=== PATIENT | female | born 1985 | race Caucasian/White ===

== ENCOUNTER → 2016-10-16 | Outpatient (CLI) | payer BC ==
[~2016-10-16] MED LIST: MTR600X PO; OXYC-57 PO; PRENTAB26 PO; VALA500T60 PO; [UNRECOGNIZED DRUG - CODE] PEG; [UNRECOGNIZED DRUG - OTHER] PO; juice plus PO
[2016-10-16 17:40] LABS: BASO % 0.1 %; BASO ABS # 0.01 K/uL (0-0.2); COMPLETE YES; EOS % 0.5 %; HEMATOCRIT 37.7 % (37-47); IG% 0.2 %; LYMPH ABS # 1.97 K/uL (1.2-3.4); MEAN CELL VOLUME 90.8 fL (80-100); MEAN CORPUSCULAR HEMOGLOBIN 31.8 pg (25-34); MEAN PLATELET VOLUME 10.1 fL (7.4-10.4); MONO % 9.2 %; PLATELET COUNT 166 K/uL (130-400); RED BLOOD COUNT 4.15 M/uL (4.2-5.4); WHITE BLOOD COUNT 8.22 K/uL (4.8-10.8)
[2016-10-20 12:35] LABS: CHLAMYDIA TRACH RNA*** NOT DETECTED (NOT DETECTED); GC (NEIS GONORRHOEAE)RNA** NOT DETECTED (NOT DETECTED)
== END | disposition home or self-care (01) ==
LOC: C.LAB1850 16:56
PROVIDERS: ATTEND Obstetrics & Gynecology
DX: O09.299 Supervision of pregnancy with other poor reproductive or obstetric history, unspecified trimester (principal)

== ENCOUNTER → 2017-03-03 | Outpatient (CLI) | payer BC ==
[2017-03-03 17:24] LABS: HEMATOCRIT 37.5 % (37-47)
[2017-03-03 17:29] LABS: URINE APPEARANCE CLEAR (CLEAR); URINE BILIRUBIN NEG (NEG); URINE COLOR YELLOW; URINE NITRITE NEG (NEG); URINE SPECIFIC GRAVITY 1.007 (1.000-1.030); UROBILINOGEN NEG (NEG)
[2017-03-03 17:31] LABS: MANUAL MICROSCOPIC REQUIRED? NO; REVIEW REQ? NO
== END | disposition home or self-care (01) ==
LOC: C.LAB1850 16:19
PROVIDERS: ATTEND Obstetrics & Gynecology
DX: O24.419 Gestational diabetes mellitus in pregnancy, unspecified control (principal); Z3A.00 Weeks of gestation of pregnancy not specified

== ENCOUNTER → 2017-04-28 | Outpatient (CLI) | payer BC | END | disposition home or self-care (01) | LOC: C.LABSPEC 14:28 | PROVIDERS: ATTEND Obstetrics & Gynecology | DX: Z34.82 Encounter for supervision of other normal pregnancy, second trimester (principal) ==

== ENCOUNTER 2017-05-29 03:17 | Inpatient (IN) | payer BC ==
--- NOTE | 2017-05-28 11:14 | PAT Medication Instructions ---
Service Date May 28, 2017. Current Home Medication List Multivit/Min/Iron/Fol Ac/Pren ( Vitamin), 1 TAB PO NOON [place]-3 Fatty Acids (Epa), 1 TAB PEG NOON Valacyclovir (Valtrex), 500 MG PO QPM [juice plus], 2 TAB PO BID Medication Instructions For Your Scheduled Surgery - Hold the following medications the morning of surgery: Multivit/Min/Iron/Fol Ac/Pren ( Vitamin), 1 TAB PO NOON [place]-3 Fatty Acids (Epa), 1 TAB PEG NOON [juice plus], 2 TAB PO BID - Take the following medications as scheduled the night before surgery: Valacyclovir (Valtrex), 500 MG PO QPM [juice plus], 2 TAB PO BID If you have any questions please call us at [phone] or [phone] or [phone]
[2017-05-28 11:36] LABS: BASO % 0.3 %; BASO ABS # 0.02 K/uL (0-0.2); COMPLETE YES; EOS % 0.4 %; IG% 0.3 %; LYMPH % 17.9 %; LYMPH ABS # 1.34 K/uL (1.2-3.4); MEAN CORPUSCULAR HEMOGLOBIN 34.3 pg (25-34); MEAN CORPUSCULAR HGB CONC 35.8 g/dl (32-36); MEAN PLATELET VOLUME 9.5 fL (7.4-10.4); MONO % 6.4 %; NEUT % 74.7 %; PLATELET COUNT 130 K/uL (130-400); RED BLOOD COUNT 3.96 M/uL (4.2-5.4)
[2017-05-28 13:21] LABS: BLOOD UREA NITROGEN 9 mg/dl (7-18); CALCIUM 9.2 mg/dl (8.5-10.1); CARBON DIOXIDE 26 mmol/L (21-32); CHLORIDE 104 mmol/L (98-107); CREATININE 0.62 mg/dl (0.60-1.20); GLUCOSE 72 mg/dl (70-99); POTASSIUM 4.2 mmol/L (3.5-5.1); SODIUM 136 mmol/L (136-145)
[~2017-05-29] VITALS: Ht 162.6 cm; Wt 80.5 kg
[2017-05-29] VITALS (16 sets, daily range): BP systolic 103–124; BP diastolic 67–74; PULSE 76–89; TEMP 36.5–36.9; O2SAT 96–100; Ht 162.6 cm; Wt 80.5 kg
[~2017-05-29 03:17] MED LIST changes: -MTR600X PO; -OXYC-57 PO; -[UNRECOGNIZED DRUG - OTHER] PO
[2017-05-29] MEDS ORDERED: CITRIC ACID/SODIUM CITRATE 15 ML UDC PO ONE (05:45)
[2017-05-29] MEDS ORDERED: CEFAZOLIN IV 2,000 MG in DEXTROSE 5% 50ML 50 ML IV SCH (06:00)
[2017-05-29 06:07] LABS: BASO % 0.2 %; BASO ABS # 0.02 K/uL (0-0.2); COMPLETE YES; EOS % 0.9 %; HEMATOCRIT 37.6 % (37-47); IG% 0.3 %; LYMPH % 18.7 %; LYMPH ABS # 1.72 K/uL (1.2-3.4); MEAN CELL VOLUME 96.2 fL (80-100); MEAN CORPUSCULAR HEMOGLOBIN 33.5 pg (25-34); MEAN CORPUSCULAR HGB CONC 34.8 g/dl (32-36); MEAN PLATELET VOLUME 9.5 fL (7.4-10.4); MONO % 7.2 %; NEUT % 72.7 %; PLATELET COUNT 131 K/uL (130-400); RED BLOOD COUNT 3.91 M/uL (4.2-5.4); WHITE BLOOD COUNT 9.21 K/uL (4.8-10.8)
--- NOTE | 2017-05-29 06:45 | History and Physical ---
History & Physical Date May 29, 2017. Chief Complaint Prior section, for repeat History of Present Illness The patient is a 31 year old female with SIUP at Term, and prior , here for repeat. Additional History Hepatic Disease: No Endocrine Disorder: No Kidney Disease: No Hypertension: No Heart Disease: No Bleeding Tendencies: No Infectious Diseases: No Allergies Coded Allergies: No Known Allergies (Unverified , 05/28/17) Home Medications Scheduled Multivit/Min/Iron/Fol Ac/Pren ( Vitamin), 1 TAB PO NOON [place]-3 Fatty Acids (Epa), 1 TAB PEG NOON Valacyclovir (Valtrex), 500 MG PO QPM [juice plus], 2 TAB PO BID Physical Examination Skin: warm/dry, no rash Eyes: normal inspection ENT: normal ENT inspection Head: normocephalic Neck: supple Respiratory/Chest: lungs clear, normal breath sounds Cardiovascular: regular rate, rhythm Abdomen / GI: normal bowel sounds Back: normal inspection Extremities: normal inspection Genitourinary - Female: normal pelvic exam (gravid, cervix with membranes stripped yesterday) Neurologic/Psych: no motor/sensory deficits Diagnosis SIUP @ Term, for repeat Plan of Treatment Proceed with this AM
[2017-05-29] MEDS: LACTATED RINGER'S 1000ML 1,000 ML IV SCH ×2 (07:02→08:04)
[2017-05-29] MEDS ORDERED: OXYTOCIN INJ 10 UNITS/ML VIAL ONE ×2 (07:16→08:19)
[2017-05-29] MEDS ORDERED: FENTANYL CITRATE INJ 50 MCG/1 ML 2 ML VIAL ONE (07:16)
[2017-05-29] MEDS ORDERED: MoRPHine SULFATE PF 1 MG/ML 10 ML AMP/VIAL ONE (07:18)
[2017-05-29] MEDS ORDERED: PHENYLEPHRINE HCL INJ 10 MG/ML VIAL ONE (07:20)
[2017-05-29] MEDS ORDERED: DIPHTHERIA/TETANUS/PERTUSSIS 0.5 ML SYR/VIAL IM. ONE (08:45)
[2017-05-29] MEDS ORDERED: BENZOCAINE 20% AER SPR 82.5 GM CAN EXT PRN (08:45)
[2017-05-29] MEDS ORDERED: HYDROCORTISONE ACETATE 25 MG SUPP PR PRN (08:45)
[2017-05-29] MEDS ORDERED: LANOLIN OINT EXT PRN ×2 (08:45)
[2017-05-29] MEDS ORDERED: SUPERCREAM 0.870 % 15GM JAR EXT PRN (08:45)
[2017-05-29] MEDS ORDERED: NALOXONE HCL INJ 1 MG in SODIUM CHLORIDE 0.9% 1000ML 1,000 ML IV PRN ×4 (08:54)
[2017-05-29] MEDS ORDERED: LACTATED RINGER'S 1000ML 500 ML IV PRN (08:54)
[2017-05-29] MEDS ORDERED: NALOXONE HCL INJ 0.08 MG in SYRINGE 1.8 ML IV PRN (08:54)
[2017-05-29] MEDS ORDERED: SODIUM CHLORIDE 0.9% 1000ML 1,000 ML IV PRN (08:54)
[2017-05-29] MEDS ORDERED: NO NARCOTICS OR SEDATIVES SCH (09:00)
[2017-05-29] MEDS ORDERED: NALOXONE HCL 0.4 MG/1 ML VIAL/CARP IV PRN (09:00)
[2017-05-29] MEDS ORDERED: DC INTRASPINAL MORPHINE SCH (09:00)
[2017-05-29] MEDS ORDERED: EpHEDrine SULFATE INJ 50 MG/ML AMP IV PRN (09:00)
[2017-05-29] MEDS ORDERED: NALBUPHINE HCL INJ 10 MG/ML AMP IV PRN (09:00)
[2017-05-29] MEDS ORDERED: ONDANSETRON INJ 2 MG/ML 2 ML VIAL IV PRN (09:00)
[2017-05-29] MEDS ORDERED: DiphenhydrAMINE HCL 50 MG/ML VIAL IV PRN (09:00)
[2017-05-29] MEDS ORDERED: PROMETHAZINE HCL INJ 25 MG in SODIUM CHLORIDE 0.9% 50ML 50 ML IV PRN (09:00)
[2017-05-29] MEDS ORDERED: MoRPHine SULFATE PF 1 MG/ML 10 ML AMP/VIAL EPI PRN (09:00)
[2017-05-29] MEDS ORDERED: OXYTOCIN INJ 30 UNITS in LACTATED RINGER'S 1000ML 1,000 ML IV SCH (09:30)
[2017-05-29] MEDS ORDERED: LACTATED RINGER'S 1000ML 1,000 ML IV SCH (09:30)
--- NOTE | 2017-05-29 10:42 | OPERATIVE REPORT ---
DATE OF OPERATION: 05/29/2017 PREOPERATIVE DIAGNOSES: 1. Corado intrauterine at term. 2. Prior section. POSTOPERATIVE DIAGNOSIS: Same. PROCEDURE: Repeat low transverse section with 2-layer uterine closure. SURGEON: Dr. Ford. MILK TREATER: PGY1. ESTIMATED BLOOD LOSS: 600. COMPLICATIONS: None. DISPOSITION: Stable in labor and delivery. DESCRIPTION: Daysi Kan is a 31-year-old G2, P1, prior section for breech. She presented at 40 weeks and 5 days with a corado intrauterine in the vertex position. A discussion was held with the patient in preop as she had been 1 cm dilated yesterday, had her membranes stripped and presented at 2 cm dilated this morning with some cramping that was irregular and not particularly painful. We discussed the fact that she had made surgical change and that I would be willing to augment her very early labor with artificial rupture of membranes if she continued to strongly desire a attempt. She and her discussed this at length and they decided ultimately although she was very enthusiastic about a the previous day at this point she had mentally prepared herself for a and would prefer to proceed with that route. Therefore, she was taken to the operating room and placed on the operating table in the supine position with a leftward tilt and prepped and draped in standard sterile fashion and a hard time-out was taken prior to proceeding. A Pfannenstiel incision was created by excising the prior keloid scar. This was then carried down sharply to the fascia which was incised and extended using Isaac scissors. The fascia was sharply and bluntly dissected off the underlying rectus. The rectus were naturally in the midline and this was bluntly extended and entry to the peritoneum was made in a blunt manner and extended using pressure from the excavator operator's hands. The bladder blade was placed. Bladder flap was created and a lower uterine segment transverse incision was created with entry to the uterus being made in a blunt manner for clear amniotic fluid. The hysterotomy was then extended. The head of the infant was elevated gently to the hysterotomy and then delivered using mild fundal pressure. A loose nuchal cord x1 was reduced at the time of delivery. The infant was very vigorous, made respiratory attempts and crying while still on the field. The cord was doubly clamped and cut and the infant was taken to the warmer for pediatric attention. The placenta delivered manually and was intact with a 3-vessel cord. The uterus was exteriorized, cleared of all clot and debris. Hysterotomy was then closed in 2 layers using 0 Vicryl suture with a running locked first layer and a running nonlocked imbricating second layer. The uterus was then anteflexed. The ovaries and tubes were seen to be normal bilaterally. The posterior gutter was cleared of clot and debris and the uterus was then gently reinternalized. The lateral gutters were cleared of clot and debris using a damp lap sponge. Final exam of the hysterotomy revealed that it was intact and hemostatic. The rectus was then allowed to reapproximate naturally and the fascia was closed using 1-0 Vicryl in a running nonlocked manner at the completion of which the fascia was examined and found to be free of defect. Subcutaneous tissue was copiously irrigated and then gently reapproximated using a 3-0 chromic after which the skin was closed using 4-0 Monocryl with Dermabond dressing being applied. The Quintana was draining clear yellow urine at the time the patient was considered to have completed her surgery. She was then transferred in stable condition to recovery room. I attest to the content of the Intraoperative Record and any orders documented therein. Any exception s are noted below.
--- NOTE | 2017-05-29 11:15 | Anesthesiology Progress Note ---
Anesthesia Post Op Note Date & Time May 29, 2017 at 11:14 Notes Mental Status: alert / awake / arousable, participated in evaluation Pt Amnestic to Procedure: No Nausea / Vomiting: adequately controlled Pain: adequately controlled Airway Patency, RR, SpO2: stable & adequate BP & HR: stable & adequate Hydration State: stable & adequate Neuraxial Anesthesia: was administered, sensory block is resolving Anesthetic Complications: no major complications apparent
[2017-05-29] MEDS: SIMETHICONE 80 MG CHEW PO SCH ×3 (12:00→19:34)
[2017-05-29] MEDS: KETOROLAC TROMETHAMINE 30 MG/ML VIAL IV. PRN ×2 (12:23→18:55)
--- NOTE | 2017-05-29 17:02 | Discharge Instructions ---
Discharge Instructions Date of Service May 29, 2017. Admission Reason for Admission: Previous Section Discharge Discharge Diagnosis / Problem: after delivery Discharge Goals Goal(s): Routine recovery after delivery Medications Continue Dispensed Medications: supercream, dermaplast, tucks, lansinoh Activity Recommendations Activity Limitations: per Instructions/Follow-up section . Instructions / Follow-Up Instructions / Follow-Up ACTIVITY RECOMMENDATIONS: * Gradual return to full activity over the next 2-3 weeks. * No lifting - nothing heavier than baby over the next 2-3 weeks. * Do not engage in vigorous exercise, sexual activity or sports until cleared by your physician. * Do not drive or operate any motorized equipment until cleared by your physician. * You may shower/bathe daily. MEDICATIONS: For discomfort or pain, you may use Acetaminophen (Tylenol), Ibuprofen (Advil), or Naproxen (Aleve) following the package directions. For constipation you may use Colace following the package directions. BREAST CARE: If you are not breast feeding: * Wear a supportive bra 24 hours a day for one to two weeks. * Avoid stimulating your breasts and nipples as much as possible during the first few weeks after delivery. * When taking a shower, have the warm water hit your back, not breasts. * When your breasts feel full, apply ice packs. Usually three to four times a day helps ease the discomfort. * Take a mild pain medication (Tylenol / Motrin) when you are uncomfortable. If breast feeding: * Use breast milk to lubricate nipples. Lansinoh cream may be used for sore nipples. You do not need to remove cream prior to breast feeding. If using a different brand of cream, check the label for directions regarding removal of cream prior to nursing. * Wear a supportive bra. * If having problems with breasts or breast feeding, call a business objects consultant or your health care provider. SPECIAL CARE INSTRUCTIONS: When you are discharged from the hospital, it is important for you to follow the instructions listed below: * During the first week at home, you should be able to care for yourself and your baby. In addition, the usual light household activities are encouraged. * Limit your activities to the way you feel. Do not try to clean the house or move furniture. Be sensible. * If you actively engage in sports and have done so up until the time of your delivery, you may resume these activities as soon as you feel able. This may take up to one month or even longer. Use good judgment. * Continue to take your vitamins for at least six weeks after the of your baby. * Your diet need not be limited unless you were on a special diet before your delivery. Breast-feeding mothers need around 2500 calories per day and at least 64-80 ounces of fluid per day (8 to 10 glasses). * You should eat foods from the four major food groups. Crash diets or fad diets are to be avoided. Eating lean meats, fresh fruits and vegetables, low-fat dairy products, high fiber foods and a regular exercise program, will help you get back to your pre- weight without putting your health at risk. * Constipation is sometimes a problem after delivery. Take a mild laxative as needed. If breast feeding, Milk of Magnesia is acceptable to use. You may use a suppository or Fleets enema. * A daily shower or tub bath is suggested. Wash incision daily with warm soapy water and pat dry. It doesn't need to be covered unless drainage is present. * A bloody vaginal discharge will usually continue until around four weeks . A small amount of bleeding may continue for as long as six weeks. Vaginal discharge changes from the bright red bleeding after delivery to pink then brownish and finally yellowish-pink before becoming white and disappearing. * Bleeding may increase with activity. Your first period may come in 4-8 weeks. If you are breast feeding, your period may be delayed even longer. * [place] (sex) can begin whenever both you and your partner feel comfortable and do not have any form of genital infection. It is recommended that you wait at least six weeks for internal and external healing to occur. If you have questions, please talk to your health care practitioner. A condom should be used to prevent infection and . * Foreplay, gentle intercourse and lubrication is very important the first several times to prevent pain. A water-based lubricant such as K-Y jelly or Astroglide may be used. * If you have RH negative blood and your baby is RH positive, you will receive RHOGAM by injection prior to discharge. The nurse will give you a card to keep with you that has the date and place that you received RHOGAM after delivery. * During your care, you had a Rubella screen done to check for the presence of rubella antibodies in your blood. If your test was negative, you will receive a Rubella vaccine prior to discharge. This vaccine may cause a fever, soreness at the injection site and flu-like symptoms. If these symptoms persist, notify your health care practitioner. is not advised for one month after a Rubella vaccine. * Verbalizes understanding of car seat law as reviewed with patient nursing. * Car Seat hand-out given and reviewed with patient by nursing. * Shaken baby information reviewed with patient by nursing. Call you doctor if: * Heavy bleeding (saturating several pads an hour) or passing clots the size of your fist. * A fever >101 degrees F (38.3 degrees C) on two occasions four hours apart and /or chills. * Unusual pain in the pelvic or vaginal areas. * Call the doctor for any increased redness, drainage or swelling around the incision and any pain unrelieved by prescribed pain medication. * "Baby Blues" lasting longer than two weeks. If you have any questions or concerns, call your health care practitioner at . FOLLOW UP VISIT: * Please call the office at to schedule a 6 week examination. It is important you keep this appointment. It is important for you to make arrangements for either yearly or twice yearly check-ups thereafter. Current Hospital Diet Patient's current hospital diet: Clear Liquid Diet Discharge Diet Recommended Diet: Regular Diet Procedures Procedures Performed: Repeat Caesarean Section;Delivery of a live male child at 0817 Pending Studies Studies pending at discharge: no Medical Emergencies . Who to Call and When: Medical Emergencies: If at any time you feel your situation is an emergency, please call [phone] immediately. . Non-Emergent Contact Non-Emergency issues call your: Optical Designer . . "Provider Documentation" section prepared by Juan Rausch. . VTE Core Measure Inpt VTE Proph given/why not?: SCD's
[2017-05-29] MEDS: DOCUSATE SODIUM 100 MG CAP PO SCH (19:34)
[2017-05-30] VITALS (8 sets, daily range): BP systolic 102–113; BP diastolic 66–75; PULSE 76–99; TEMP 36.4–36.8; O2SAT 96–100
[2017-05-30] MEDS: KETOROLAC TROMETHAMINE 30 MG/ML VIAL IV. PRN (02:06)
[2017-05-30] MEDS ORDERED: ONDANSETRON INJ 2 MG/ML 2 ML VIAL IV PRN (03:00)
[2017-05-30] MEDS ORDERED: ZOLPIDEM TARTRATE 5 MG TAB PO PRN (03:00)
[2017-05-30] MEDS ORDERED: OXYCODONE/ACETAMINOPHEN 5-325 TAB PO PRN (03:00)
[2017-05-30] MEDS ORDERED: KETOROLAC TROMETHAMINE 30 MG/ML VIAL IV. PRN (03:00)
[2017-05-30] MEDS ORDERED: PROMETHAZINE HCL INJ 25 MG in SODIUM CHLORIDE 0.9% 50ML 50 ML IV PRN (03:00)
[2017-05-30] MEDS ORDERED: DiphenhydrAMINE HCL 50 MG/ML VIAL IV PRN (03:00)
--- NOTE | 2017-05-30 06:01 | OB/GYN Progress Note ---
J[employer]ER Progress Note Date of Service May 30, 2017. Subjective conversation w/ patient, physical exam, chart review, lab review Ambulation: limited ambulation Voiding: no voiding problems Passing Gas: No Diet Tolerance: Clear Liquids Lochia: Small Feeding Type: Breast Feeding Pain: mild pain Review of Systems Constitutional: No fever Respiratory: No shortness of breath Cardiac: No chest pain Abdomen: No nausea, No vomiting Female : No dysuria Objective Vital Signs Date Time Temp Pulse Resp B/P (MAP) Pulse Ox O2 Delivery O2 Flow Rate FiO2 05/30/17 03:30 36.8 79 16 104/68 (80) 96 Room Air 05/30/17 03:00 18 96 05/30/17 02:15 16 99 05/30/17 01:15 18 98 05/30/17 00:15 18 100 05/29/17 23:40 100 Room Air 05/29/17 23:40 36.7 82 18 106/72 (83) 100 Room Air 05/29/17 23:15 18 97 05/29/17 22:15 18 100 05/29/17 21:15 18 97 05/29/17 20:15 18 99 05/29/17 19:35 36.8 80 18 104/68 (80) 96 Room Air 05/29/17 19:15 18 98 05/29/17 18:28 18 97 05/29/17 17:30 18 100 05/29/17 16:23 18 100 05/29/17 15:25 Room Air 05/29/17 15:25 18 99 05/29/17 15:25 36.7 76 18 103/67 (79) 99 Room Air 05/29/17 14:29 18 97 05/29/17 13:30 36.8 81 18 107/70 (82) 100 Room Air 05/29/17 13:30 18 100 05/29/17 12:30 36.5 89 20 109/70 (83) 99 Room Air 05/29/17 12:30 20 99 05/29/17 12:13 36.8 89 18 124/74 (91) 99 Room Air 05/29/17 11:30 Nasal Cannula 05/29/17 11:30 96 Room Air 05/29/17 11:30 36.9 80 18 107/69 (82) 96 Room Air 05/29/17 11:30 18 96 Physical Exam General Appearance: WELL-APPEARING Respiratory/Chest: lungs clear, normal breath sounds, no respiratory distress Cardiovascular: regular rate, rhythm Abdomen: normal bowel sounds, non tender, soft Fundus: Firm, Relation to Umbilicus (at U) Incision Description: Clean, Dry & Intact Extremities: non-tender, no pedal edema Laboratory Results Last 24 Hours Test 05/29/17 06:05 Bedside Glucose 85 mg/dl Medications Current Inpatient Medications Medications (Trade) Dose Ordered Sig/Nohemi Route Start Time Stop Time Status Last Admin Dose Admin Lactated Ringer's 1,000 ml @ 1,000 mls/hr Q1H IV 05/29/17 05:43 06/28/17 05:42 05/29/17 08:04 1,000 MLS/HR Lactated Ringer's 1,000 ml @ 125 mls/hr Q8H IV 05/29/17 09:30 06/28/17 09:29 05/29/17 18:22 125 MLS/HR Ketorolac Tromethamine (Toradol Inj) 30 mg Q6H PRN IV. 05/30/17 03:00 06/04/17 02:59 Oxycodone/ Acetaminophen (Percocet 5-325mg Tab) 1 tab Q4H PRN PO 05/30/17 03:00 06/13/17 02:59 Oxycodone/ Acetaminophen (Percocet 5-325mg Tab) 2 tab Q4H PRN PO 05/30/17 03:00 06/13/17 02:59 Ibuprofen (Motrin Tab) 600 mg Q4H PRN PO 05/29/17 08:45 06/28/17 08:44 Promethazine HCl 25 mg/Sodium Chloride 51 ml @ 204 mls/hr Q4H PRN IV 05/30/17 03:00 06/29/17 02:59 Ondansetron HCl (Zofran Inj) 4 mg Q4H PRN IV 05/30/17 03:00 06/29/17 02:59 Prenat Multivit/ [place]/Iron/Folic Ac ( Vitamin Tab) 1 tab DAILY PO 05/30/17 08:00 06/29/17 07:59 Bisacodyl (Dulcolax Tab) 5 mg HS ONCE PO 05/30/17 22:00 05/30/17 22:01 Bisacodyl (Dulcolax Supp) 10 mg PRN PRN [place] 05/31/17 08:45 06/30/17 08:44 Docusate Sodium (coLACE CAP) 100 mg BID PO 05/29/17 20:00 06/28/17 19:59 05/29/17 19:34 100 MG Ferrous Sulfate (Feosol Tab) 325 mg DAILY PO 05/30/17 08:00 06/29/17 07:59 Cocaine HCl (Supercream 0.870% Cr) BID PRN EXT 05/29/17 08:45 06/12/17 08:44 Lanolin (Lanolin Oint) PRN PRN EXT 05/29/17 08:45 06/28/17 08:44 Hydrocortisone Acetate (Anusol Hc Supp) 25 mg BID PRN [place] 05/29/17 08:45 06/28/17 08:44 Benzocaine (Dermoplast Aero Spr) 1 appln PRN PRN EXT 05/29/17 08:45 06/28/17 08:44 Zolpidem Tartrate (Ambien Tab) 5 mg HSZ PRN PO 05/30/17 03:00 06/29/17 02:59 Simethicone (Mylicon Chew Tab) 80 mg QID PO 05/29/17 12:00 06/28/17 12:59 05/29/17 19:34 80 MG Diphenhydramine HCl (Benadryl Cap) 25 mg QID PRN PO 05/30/17 03:00 06/29/17 02:59 Diphenhydramine HCl (Benadryl Inj) 25 mg QID PRN IV 05/30/17 03:00 06/29/17 02:59 Assessment and Plan Post-Op Day Number: 1 Continue Routine Care: A/P: This is a 31 y/o female, , POD#1 s/p repeat . She is clinically stable. Plan: - Vitals signs are reviewed and WNL (Tmax 36.8 ) - Last Hgb is 13.1 (05/29) - Blood type B-, GBS neg, Rubella Immune - Routine post operative care - Encourage ambulation, monitor and control pain with medication as needed, continue with regular diet as tolerated and monitor lochia - Stool softeners and sitz bath recommended - Encourage breast feeding and educate about breast feeding Resident Physician Supervision Note: I was present with Dr. Rausch during the history and exam. I discussed the case with the resident and agree with the findings and plan as documented in the note. Any exceptions or clarifications are listed here: Doing well. Feels her skin of legs are tight but no calf tenderness. No flatus yet but feels like its on the verge. No n/v. She did void since renee out now of good volume. Uterus for me was 2 down, firm, nt, incision c/d/i. routine care. adv diet, ambulate, po pain meds. Documented By: Julia Cross Resident Involvement: Resident Care Provided Care Provided: OB Delivery
[2017-05-30 07:00] LABS: BASO % 0.1 %; BASO ABS # 0.01 K/uL (0-0.2); COMPLETE YES; EOS % 0.5 %; IG% 0.3 %; LYMPH % 16.5 %; LYMPH ABS # 1.29 K/uL (1.2-3.4); MEAN CELL VOLUME 97.3 fL (80-100); MEAN CORPUSCULAR HEMOGLOBIN 32.4 pg (25-34); MEAN CORPUSCULAR HGB CONC 33.3 g/dl (32-36); MEAN PLATELET VOLUME 9.4 fL (7.4-10.4); MONO % 7.7 %; NEUT % 74.9 %; PLATELET COUNT 123 K/uL (130-400)
[2017-05-30] MEDS: PRENATAL VITAMIN TAB PO SCH (07:50)
[2017-05-30] MEDS: SIMETHICONE 80 MG CHEW PO SCH ×4 (08:23→19:41)
[2017-05-30] MEDS: FERROUS SULFATE 325 MG TAB PO SCH (08:24)
[2017-05-30] MEDS: DOCUSATE SODIUM 100 MG CAP PO SCH ×2 (08:24→19:41)
[2017-05-30] MEDS: OXYCODONE/ACETAMINOPHEN 5-325 TAB PO PRN ×5 (08:25→20:18)
[2017-05-30] MEDS: IBUPROFEN 600 MG TAB PO PRN ×4 (08:25→20:18)
[2017-05-30] MEDS ORDERED: BISACODYL 5 MG TABEC PO ONE (22:00)
[2017-05-31] MEDS: IBUPROFEN 600 MG TAB PO PRN ×6 (01:36→21:50)
[2017-05-31] MEDS: OXYCODONE/ACETAMINOPHEN 5-325 TAB PO PRN ×6 (01:37→21:51)
--- NOTE | 2017-05-31 06:51 | Progress Note ---
Subjective May 31, 2017. Subjective conversation w/ patient, physical exam Ambulation: ambulating normally Voiding: no voiding problems Passing Gas: Yes Diet Tolerance: Regular Diet Lochia: Moderate Feeding Type: Breast Feeding Review of Systems Constitutional: No fever, No chills Respiratory: No cough Abdomen: No nausea, No vomiting Objective Vital Signs Date Time Temp Pulse Resp B/P (MAP) Pulse Ox O2 Delivery O2 Flow Rate FiO2 05/30/17 23:55 36.4 76 16 102/66 (78) 98 Room Air 05/30/17 23:55 98 Room Air 05/30/17 16:51 36.7 87 20 113/75 (88) 05/30/17 08:30 Room Air 05/30/17 08:30 36.8 99 20 111/71 (84) Physical Exam General Appearance: WELL-APPEARING, NO APPARENT DISTRESS Respiratory/Chest: no respiratory distress, no accessory muscle use Cardiovascular: no edema Abdomen: non tender, soft Fundus: Firm Incision Description: Clean, Dry & Intact Extremities: no calf tenderness Laboratory Results Last 24 Hours Test 05/31/17 06:12 Hemoglobin 11.1 g/dL Hematocrit 32.0 % Assessment and Plan Post-Op Day#: 2
[2017-05-31 07:40] VITALS: BP 108/72; PULSE 76; TEMP 36.3
[2017-05-31] MEDS: PRENATAL VITAMIN TAB PO SCH (07:55)
[2017-05-31] MEDS: SIMETHICONE 80 MG CHEW PO SCH ×4 (07:55→19:26)
[2017-05-31] MEDS: DOCUSATE SODIUM 100 MG CAP PO SCH ×2 (07:55→19:26)
[2017-05-31] MEDS: FERROUS SULFATE 325 MG TAB PO SCH (07:55)
[2017-05-31] MEDS ORDERED: BISACODYL 10 MG SUPP PR PRN (08:45)
[2017-05-31 16:00] VITALS: BP 107/71; PULSE 76; TEMP 36.7; O2SAT 97
[2017-05-31 23:30] VITALS: BP 120/77; PULSE 74; TEMP 36.9; O2SAT 98
[2017-06-01] MEDS: IBUPROFEN 600 MG TAB PO PRN ×2 (04:01→09:35)
[2017-06-01] MEDS: OXYCODONE/ACETAMINOPHEN 5-325 TAB PO PRN ×2 (04:02→09:35)
--- NOTE | 2017-06-01 06:32 | OB/GYN Progress Note ---
[employer]BILE APPLICATION DEVELOPMENT LEAD Progress Note Date of Service Jun 01, 2017. Subjective conversation w/ patient, physical exam, chart review, lab review Ambulation: ambulating normally Voiding: no voiding problems Passing Gas: Yes Diet Tolerance: Regular Diet Lochia: Small Feeding Type: Breast Feeding Pain: 4-5/10 pain Review of Systems Constitutional: No fever Respiratory: No shortness of breath Cardiac: No chest pain Abdomen: No nausea, No vomiting Female : No dysuria Objective Vital Signs Date Time Temp Pulse Resp B/P (MAP) Pulse Ox O2 Delivery O2 Flow Rate FiO2 05/31/17 23:30 Room Air 05/31/17 23:30 36.9 74 16 120/77 (91) 98 Room Air 05/31/17 16:00 97 Room Air 05/31/17 16:00 36.7 76 16 107/71 (83) 97 Room Air 05/31/17 07:40 36.3 76 20 108/72 (84) Physical Exam General Appearance: WELL-APPEARING Respiratory/Chest: lungs clear, normal breath sounds, no respiratory distress Cardiovascular: regular rate, rhythm Abdomen: normal bowel sounds, non tender, soft Fundus: Firm, Relation to Umbilicus (3 below U) Incision Description: Clean, Dry & Intact Extremities: no pedal edema, + pertinent finding (L calf tighness ) Laboratory Results Last Resulted 05/30/17 06:23 Red Blood Count 3.70, Mean Corpuscular Volume 97.3, Mean Corpuscular Hemoglobin 32.4, Mean Corpuscular Hemoglobin Concent 33.3, Mean Platelet Volume 9.4, Neutrophils (%) (Auto) 74.9, Lymphocytes (%) (Auto) 16.5, Monocytes (%) (Auto) 7.7, Eosinophils (%) (Auto) 0.5, Basophils (%) (Auto) 0.1, Neutrophils # (Auto) 5.84, Lymphocytes # (Auto) 1.29, Monocytes # (Auto) 0.60, Eosinophils # (Auto) 0.04, Basophils # (Auto) 0.01 05/31/17 06:12 Last Resulted 05/28/17 11:26 Medications Current Inpatient Medications Medications (Trade) Dose Ordered Sig/Nohemi Route Start Time Stop Time Status Last Admin Dose Admin Lactated Ringer's 1,000 ml @ 1,000 mls/hr Q1H IV 05/29/17 05:43 06/28/17 05:42 05/29/17 08:04 1,000 MLS/HR Lactated Ringer's 1,000 ml @ 125 mls/hr Q8H IV 05/29/17 09:30 06/28/17 09:29 05/29/17 18:22 125 MLS/HR Ketorolac Tromethamine (Toradol Inj) 30 mg Q6H PRN IV. 05/30/17 03:00 06/04/17 02:59 Oxycodone/ Acetaminophen (Percocet 5-325mg Tab) 1 tab Q4H PRN PO 05/30/17 03:00 06/13/17 02:59 06/01/17 04:02 1 TAB Oxycodone/ Acetaminophen (Percocet 5-325mg Tab) 2 tab Q4H PRN PO 05/30/17 03:00 06/13/17 02:59 Ibuprofen (Motrin Tab) 600 mg Q4H PRN PO 05/29/17 08:45 06/28/17 08:44 06/01/17 04:01 600 MG Promethazine HCl 25 mg/Sodium Chloride 51 ml @ 204 mls/hr Q4H PRN IV 05/30/17 03:00 06/29/17 02:59 Ondansetron HCl (Zofran Inj) 4 mg Q4H PRN IV 05/30/17 03:00 06/29/17 02:59 Prenat Multivit/ [place]/Iron/Folic Ac ( Vitamin Tab) 1 tab DAILY PO 05/30/17 08:00 06/29/17 07:59 05/31/17 07:55 1 TAB Bisacodyl (Dulcolax Supp) 10 mg PRN PRN [place] 05/31/17 08:45 06/30/17 08:44 Docusate Sodium (coLACE CAP) 100 mg BID PO 05/29/17 20:00 06/28/17 19:59 05/31/17 19:26 100 MG Ferrous Sulfate (Feosol Tab) 325 mg DAILY PO 05/30/17 08:00 06/29/17 07:59 05/31/17 07:55 325 MG Cocaine HCl (Supercream 0.870% Cr) BID PRN EXT 05/29/17 08:45 06/12/17 08:44 Lanolin (Lanolin Oint) PRN PRN EXT 05/29/17 08:45 06/28/17 08:44 Hydrocortisone Acetate (Anusol Hc Supp) 25 mg BID PRN [place] 05/29/17 08:45 06/28/17 08:44 Benzocaine (Dermoplast Aero Spr) 1 appln PRN PRN EXT 05/29/17 08:45 06/28/17 08:44 Zolpidem Tartrate (Ambien Tab) 5 mg HSZ PRN PO 05/30/17 03:00 06/29/17 02:59 Simethicone (Mylicon Chew Tab) 80 mg QID PO 05/29/17 12:00 06/28/17 12:59 05/31/17 19:26 80 MG Diphenhydramine HCl (Benadryl Cap) 25 mg QID PRN PO 05/30/17 03:00 06/29/17 02:59 Diphenhydramine HCl (Benadryl Inj) 25 mg QID PRN IV 05/30/17 03:00 06/29/17 02:59 Assessment and Plan Post-Op Day Number: 3 Continue Routine Care: A/P: This is a 31 y/o female, , POD#1 s/p repeat . She is clinically stable. Plan: - Vitals signs are reviewed and WNL (Tmax 36.9 ) - Last Hgb is 11.1 (05/31) - Blood type B-, GBS neg, Rubella Immune - No signs of depression. - Routine post operative care - Discussed resting, feeding, pain control, mastitis, control, follow up in 6 weeks and reasons to call sooner, if necessary. - Continue with pain medication as needed, and continue vitamins. - Encourage breast feeding and educate about breast feeding - Patient understands and keen for home. - Plan to discharge home Resident Physician Supervision Note: I was present with Dr. Rausch during the history and exam. I discussed the case with the resident and agree with the findings and plan as documented in the note. Any exceptions or clarifications are listed here: [None] Documented By: Evelyn Ford Resident Involvement: Resident Care Provided Care Provided: OB Delivery
[2017-06-01] MEDS ORDERED: OXYC-57 PO (07:13)
[2017-06-01] MEDS: SIMETHICONE 80 MG CHEW PO SCH ×2 (07:50→11:39)
[2017-06-01] MEDS: PRENATAL VITAMIN TAB PO SCH (07:50)
[2017-06-01] MEDS: FERROUS SULFATE 325 MG TAB PO SCH (07:50)
[2017-06-01] MEDS: DOCUSATE SODIUM 100 MG CAP PO SCH (07:50)
[2017-06-01 08:00] VITALS: BP 117/76; PULSE 75; TEMP 36.6; O2SAT 97
[2017-06-01 12:40] VITALS: BP_DIAS 76; PULSE 75; TEMP 36.6
--- NOTE | 2017-06-16 10:59 | Discharge Summary ---
Discharge Summary Date of Service Jun 16, 2017. Discharge Summary Admission Date: May 29, 2017 at 05:37 Discharge Date: Jun 01, 2017 Discharge Disposition: Home Principal Diagnosis: History of delivery Medication Reconciliation New Medications: Oxycodone/Acetaminophen 5MG/325MG (Percocet 5MG/325MG) Tab 1 TAB PO Q4H PRN for Pain - Pain Scale 1-5, #15 TAB PAIN Continued Medications: Multivit/Min/Iron/Fol Ac/Pren ( Vitamin) Tab 1 TAB PO NOON, TAB Norton-3 Fatty Acids (Epa) 1 Cap Cap 1 TAB PEG NOON [juice plus] () 2 TAB PO BID Discontinued Medications: Valacyclovir (Valtrex) 500 Mg Tab 500 MG PO QPM, TAB Hospital Course Total Time Spent: Less than 30 minutes This includes examination of the patient, discharge planning, medication reconciliation, and communication with other providers. Discharge Instructions Please refer to the electronic Patient Visit Report (Discharge Instructions) for additional information.
== END 2017-06-01 13:30 | disposition home or self-care (01) | DRG 766 ==
LOC: C.LD 05:37 → EDSTATUS 09:00 → C.OBG 11:36
PROVIDERS: ADMIT Obstetrics & Gynecology; ATTEND Obstetrics & Gynecology
PROC: 10D00Z1 Extraction of Products of Conception, Low, Open Approach (ICD-10-PCS; principal; 2017-05-29 07:30)
DX: O34.211 Maternal care for low transverse scar from previous cesarean delivery (principal); N85.8 Other specified noninflammatory disorders of uterus; O69.81X0 Labor and delivery complicated by cord around neck, without compression, not applicable or unspecified; O24.419 Gestational diabetes mellitus in pregnancy, unspecified control; O99.72 Diseases of the skin and subcutaneous tissue complicating childbirth; L91.0 Hypertrophic scar; L90.5 Scar conditions and fibrosis of skin; O99.214 Obesity complicating childbirth; E66.9 Obesity, unspecified; Z68.31 Body mass index [BMI] 31.0-31.9, adult; Z3A.40 40 weeks gestation of pregnancy; Z37.0 Single live birth; Z79.899 Other long term (current) drug therapy

== ENCOUNTER 2019-02-18 07:11 | Inpatient (IN) ==
--- NOTE | 2019-02-16 15:34 | PAT Medication Instructions ---
Medication Instructions Date of Service February 16, 2019 Home Medications Juice Plus 4 cap PO QDL PNV cmb#95-ferrous fumarate-FA 1 tab PO QDL fish mjy-qse-zbpd 1 cap PO QDL STOP taking 2 weeks before surgery (or as soon as possible if surgery is within 2 weeks) Juice Plus 4 cap PO QDL fish flo-uvw-lekt 1 cap PO QDL DO NOT take the morning of surgery PNV cmb#95-ferrous fumarate-FA 1 tab PO QDL Other Notes If you have any questions please call us at [phone] or [phone] or [phone] or [phone]
--- NOTE | 2019-02-17 15:39 | Anesthesiology Consultation ---
Date of Service February 17, 2019 Assessment & Plan (1) Encounter for pre-operative examination: Per OB; no labs to be done at [facility]-- will have them drawn AM day of c/s Chart Review Chart Review: Acceptable Risk for Surgery (PENDING LABS AM DAY OF C/S) and Patient seen in Pre Admission Testing Teaching & Discussion Pre-Anesthesia Teaching/Discussion Notes: Instructed NPO after midnight before surgery,except medications with 15 cc of water. Medication instructions provided according to the [facility] guidelines. History Surgery Operation Date: 02/18/19 08:50 Proposed Procedures p Section - Julia Cross MD, FACOG Height/Weight Height: 5 ft 3 in Weight: 84 kg Allergies Allergy/AdvReac Type Severity Reaction Status Date / Time No Known Allergies Allergy Verified 02/09/19 15:46 Medications Home Medications Medication Instructions Recorded Confirmed Last Taken Juice Plus 4 cap PO QDL 02/09/19 Unknown PNV cmb#95-ferrous fumarate-FA 1 tab PO QDL 02/09/19 02/09/19 Unknown [] fish oil-dha-epa 1 cap PO QDL 02/09/19 02/09/19 Unknown valacyclovir 1,000 mg PO DAILY 02/17/19 02/17/19 Unknown Past Medical History Medical History Gestational diabetes DIET CONTROLLED Oral herpes VALACYCLOVIR HS Varicose veins of left lower extremity WEARS COMPRESSION STOCKING Exercise / Class Metabolic Activity II 4-5 Yardwork/Stairs/Walk up hill Past Surgical History Surgical History Hx of section 2013 (2/2 BREECH) 2017 (REPEAT) SAB X 1 AT L3-L4 AT [facility] = GOOD PAIN CONTROL Hx of hernia repair Hx of wisdom tooth extraction Past Anesthesia History No Hx of Anesthesia Complications and No Family Hx of Anesthesia Complications History of PONV No Hx of Motion Sickness and History of PONV (WITH PRIOR C/S*) Social History Smoking Status: Never smoker Do You Dip or Chew Tobacco: No Hx Alcohol Use: No Alcohol Intake Frequency Comment: NONE WITH Hx Substance Use: No Review of Systems Heartburn and LBP associated with . Patient denies chest pain, shortness of breath, cough, wheezing, palpitations. Physical Exam Vital Signs VITALS BP 103/68 P 93 TEMP 98.2 SP02 95%RA RESP 18 PHYSICAL Full neck and c-spine range of motion. Full TMJ range of motion. TMD 3.5 finger breaths Mallampati Score 2 Dentition: missing molars Lungs: clear throughout to auscultation Cardiac: regular rate and rhythm, no murmurs noted Spine: normal Extremities: no edema
--- NOTE | 2019-02-17 16:13 | History and Physical Report ---
DATE OF ADMISSION: 02/18/2019 CHIEF COMPLAINT: Planned section. HISTORY OF PRESENT ILLNESS: A 33-year-old 3, para 2-0-0-2, at 39 and 5/7 weeks with an EDC of 02/19/2019 for planned section on 02/18/2019. The patient is doing well. She denies any regular contractions. She reports good movement. She denies any vaginal bleeding or leaking of fluid. Her course has been complicated by diet-controlled gestational diabetes, history of herpes simplex type 1 infections with gentle outbreaks, now on Valtrex since 36 weeks, Rh negativity, varicose veins, prior section x2. LABS: Rh negative, rubella immune, group beta strep negative. OBSTETRIC HISTORY: section x2. The first was for breech presentation. GYNECOLOGIC HISTORY: No STDs. History of the genital herpes type 1, currently on Valtrex, history of abnormal Pap smear with colposcopy in 2012, normal Pap smears recently. PAST MEDICAL HISTORY: History of migraines, anxiety. PAST SURGICAL HISTORY: x2, inguinal hernia repair, wisdom teeth extraction and colposcopy in 2012. ALLERGIES: None. MEDICATIONS: Valacyclovir 1 gram daily, vitamins, Tums, fish oil. SOCIAL HISTORY: No tobacco, alcohol or street drug use. FAMILY HISTORY: No congenital anomalies or mental retardation. REVIEW OF SYSTEMS: Ten systems are negative other than what is written in the HPI. PHYSICAL EXAMINATION: VITAL SIGNS: Height 5 feet 3.5 inches, weight 184 pounds. Blood pressure 120/80. Urine dip negative for protein and sugar. HEART: Regular rate and rhythm. LUNGS: Clear to auscultation bilaterally. ABDOMEN: Soft, gravid, nontender. Cephalic presentation by Manpreet's maneuvers. EXTREMITIES: No edema. Fundal height 36 cm. heart tones 135. ASSESSMENT: 1. A 39+ week intrauterine . 2. Prior section x2, desires repeat section. 3. Gestational diabetes, diet controlled. 4. Rh negative. PLAN: The patient will be admitted tomorrow for planned section. Risks, alternatives and complications were discussed with the patient and the consent form was reviewed and signed. She is aware of her preop and postop instructions and course. She will present to preadmission testing today and will present for her planned section in the morning.
[~2019-02-18 07:11] MED LIST changes: +CEFAZOLIN 2,000 MG in SYRINGE 0 ML IV SCH; +CEFAZOLIN 2000MG 2,000 MG/15 ML SYR IV SCH; +CITRIC ACID/SODIUM CITRATE 15 ML UDC PO SCH; +LACTATED RINGER'S 1,000 ML IV SCH; +LR 15ML/HR IV SCH; -PRENTAB26 PO; -VALA500T60 PO; -[UNRECOGNIZED DRUG - CODE] PEG; -juice plus PO
--- OUTSIDE RECORDS SUMMARY | 2019-02-18 07:14 | External Medical Summary | Continuity of Care Document ---
:1985 Author Name Yung Arreola, Provider Address Unavailable Unavailable , Care Team Providers Name Role Phone Tay Arreola, Julia Puckett Unavailable [email or web address] Herrera M.D. Unavailable [email or web address] Angelique SALDANA Unavailable [email or web address] Problems History of Mild cervical dysplasia (622.11) (N87.0) Status: Resolved History of (V45.89) (Z98.891) Varicose veins of lower extremity during in second trimester (671.03) (O22.02) Sciatica (724.3) (M54.30) Need for rhogam due to Rh negative mother (V07.2) (Z29.13) Herpes simplex type 1 infection (054.9) (B00.9) due to (V24.1) (Z39.1) Diet controlled gestational diabetes jarad litus (GDM) in third trimester (648.83) (O24.410) Encounter for supervision of normal preg sarah in multigravida in third trimester (V22.1) (Z34.83) Allergies and Adverse Reactions No Known Drug Allergies (Allergy) Medications Juice Plus Fibre Oral Liquid Refills: 0 Pre- TABS Refills: 0 OneTouch Delica Lancets Fine; Check blood sugars 4 joan es a day Maxwell Herrera Oct S. Start: 09-Aug-2018 Quantity: 350 Refills: 2 OneTouch Verio In Vitro Strip; Check BGL 4 times a day as directed for Gestational Diabetes Mellitus ; 648.83 Maxwell Herrera Oct S. Start: 018 Quantity: 350 Refills: 2 Ketone Test In Vitro Strip; check ketones in urine sylvia ry morning Maxwell Herrera Oct S. Start: 09-Aug-2018 Quantity: 3 50 Strip Box Refills: 2 Tums CHEW Refills: 0 valACYclovir HCl - 1 GM Oral Tablet; take 1 tablet by mouth once daily DO Elissa Merino Start: 10-Jan-2019 Quantity: 30 Refills: 2 Fish Oil CAPS Refills: 0 Procedures History of Hernia Repair Inguinal Sliding Status: Completed History of Oral Surgery Tooth Extraction Status: Completed History of Influenza vaccine needed Stat us: Completed History of Section Low Transverse Status: Completed Immunizations Influenza (Whole) On: 02-Sep-2013 13:53 Lot #: [id number], SANOFI PASTEUR Tdap (Adacel) On: 09-Feb-2014 16:54 Lot #: [id number], SANOFI PASTEUR Fluzone Quadrivalent 0.5 ML Intramuscular Suspension On: 16:33 Lot #: [id number], SANOFI PASTEUR Tdap (Adacel) On: 01-Apr-2017 10:02 Lot #: [id number], SANOFI PASTEUR Fluzone Quadrivalent 0.5 ML Intramuscular Suspension P refilled Syringe On: 15-Jul-2018 15:54 Lot #: [id number], SANOFI PASTEUR Tdap (Adacel) On: 27-Dec-2018 15:47 Lot #: [id number], SANOFI PASTEUR Family History Unknown Family Member Family history of Diabetes Mellitus (V18.0) Status: Active Comments: Family History Grandfather Family history of diabetes mellitus (V18.0) (Z83.3) Status: Active Sister Family history of ovarian cyst (V18.7) (Z84.2) Status: Activ e Plan of Treatment Planned Encounters Appointment; Julia Cross M.D. Start: 18-Feb-2019 8:50 Req uest Planned Observations Planned Goals not documented Results Group B Strep/HANDY 24-Jan-2019 18:21 GRP B BETA STREP CULTURE - HANDY ORDERED P ROCEDURE : GRP B Beta Strep Culture -HANDY; Speciment : V aginal/Rectal Source of Specimen: Vaginal/ Rectal Group B St rep Culture : No Group B Strep isolated Vital Signs 17-Feb-2019 15:11 Systolic 120 mm[Hg] Diastolic 80 mm[Hg] BMI Calculated 32.17 kg/m2 Weight 184.5 lb Height 63.5 in BSA Calculated 1.88 m2 07-Feb-2019 16:02 Systolic 116 mm[Hg] Diastolic 84 mm[Hg] BMI Calculated 31.94 kg/m2 Weight 183.2 lb Height 63.5 in BSA Calculated 1.87 m2 31-Jan-2019 16:05 Systolic 122 mm[Hg] Diastolic 74 mm[Hg] BMI Calculated 31.77 kg/m2 Weight 182.2 lb Height 63.5 in BSA Calculated 1.87 m2 24-Jan-2019 15:36 Systolic 110 mm[Hg] Diastolic 82 mm[Hg] BMI Calculated 31.47 kg/m2 Weight 180.5 lb Height 63.5 in BSA Calculated 1.86 m2 Encounters Appointment; Julia Cross M.D. 17-Feb-2019 15:10 Encounter Diagnosis: Problem not documented Appointment; Nichole Saucedo M.D. 07-Feb-2019 16:10 Encounter Diagnosis: Problem not documented Appointment; Burak Alex M.D. 31-Jan-2019 16:10 Encounter Diagnosis: Problem not documented Appointment; Venancio Willingham M.D. 24-Jan-2019 15:50 Encounter Diagnosis: Problem not documented Appointment; OBCINTHYA GARCIA2, Ultrasound 24-Jan-2019 15:30 Encounter Diagnosis: Problem not documented Appointment; Elissa Merino DO 10-Jan-2019 16:20 Encounter Diagnosis: Problem not documented Appointment; Evelyn Ford M.D. 27-Dec-2018 15:50 Encounter Diagnosis: Problem not documented Appointment; KAYDEN GARCIA2, Ultrasound 27-Dec-2018 15:30 Encounter Diagnosis: Problem not documented Appointment; Soraida Santa M.D. 13-Dec-2018 15:50 Encounter Diagnosis: Problem not documented Appointment; Elissa Merino DO 29-Nov-2018 15:30 Encounter Diagnosis: Problem not documented Appointment; OBCINTHYA GARCIA1, Ultrasound 29-Nov-2018 15:00 Encounter Diagnosis: Problem not documented Appointment; Julia Cross M.D. 02-Nov-2018 16:00 Encounter Diagnosis: Problem not documented Appointment; OBCINTHYA GARCIA2, Ultrasound 02-Nov-2018 15:30 Encounter Diagnosis: Problem not documented Appointment; Sharita Dias M.D. 30-Sep-2018 16:30 Encounter Diagnosis: Problem not documented Appointment; KAYDEN GARCIA1, Ultrasound 30-Sep-2018 15:45 Encounter Diagnosis: Problem not documented Appointment; Soraida Santa M.D. 06-Sep-2018 9:10 Encounter Diagnosis: Problem not documented Appointment; Meenakshi Mendoza R.D. 09-Aug-2018 15:30 Encounter Diagnosis: Problem not documented Appointment; Nichole Saucedo M.D. 09-Aug-2018 15:10 Encounter Diagnosis: Problem not documented Appointment; OBGYN SC2, Ultrasound 15-Jul-2018 16:00 Encounter Diagnosis: Problem not documented Appointment; OB SC1, Procedure Rm 15-Jul-2018 15:30 Encounter Diagnosis: Problem not documented Appointment; Sharita Dias M.D. 15-Jul-2018 15:30 Encounter Diagnosis: Problem not documented Appointment; OB SC1, Nursing Station 07-Jul-2018 15:00 Encounter Diagnosis: Problem not documented Appointment; Evelyn Ford M.D. 10-Jul-2017 14:30 Encounter Diagnosis: Problem not documented Appointment; Evelyn Ford M.D. 29-May-2017 7:30 Encounter Diagnosis: Problem not documented Appointment; Evelyn Ford M.D. 28-May-2017 9:40 Encounter Diagnosis: Problem not documented Appointment; OB SC1, Nonstress Test 28-May-2017 9:10 Encounter Diagnosis: Problem not documented Appointment; Elissa Merino DO 19-May-2017 11:10 Encounter Diagnosis: Problem not documented Appointment; Venancio Willingham M.D. 12-May-2017 8:30 Encounter Diagnosis: Problem not documented Appointment; Elissa Merino DO 05-May-2017 8:20 Encounter Diagnosis: Problem not documented Appointment; Evelyn Ford M.D. 28-Apr-2017 11:30 Encounter Diagnosis: Problem not documented Appointment; OBGYN SC1, Ultrasound 28-Apr-2017 11:00 Encounter Diagnosis: Problem not documented Appointment; Soraida Santa M.D. 15-Apr-2017 13:20 Encounter Diagnosis: Problem not documented Appointment; Elissa Merino DO 01-Apr-2017 9:20 Encounter Diagnosis: Problem not documented Appointment; OBGYN SC2, Ultrasound 01-Apr-2017 9:15 Encounter Diagnosis: Problem not documented Appointment; Nichole Saucedo M.D. 17-Mar-2017 16:30 Encounter Diagnosis: Problem not documented Appointment; Elissa Merino DO 03-Mar-2017 16:30 Encounter Diagnosis: Problem not documented Appointment; KAYDEN GARCIA1, Ultrasound 03-Mar-2017 16:00 Encounter Diagnosis: Problem not documented Appointment; Julia Cross M.D. 18-Feb-2019 8:50 Encounter Diagnosis: Problem not documented
[2019-02-18] MEDS ORDERED: LACTATED RINGER'S 1,000 ML IV SCH ×3 (08:30→14:52)
[2019-02-18 08:39] LABS: Basophils # (auto) 0.01 K/uL (0-0.2); Basophils % (auto) 0.2 %; Eosinophils # (auto) 0.06 K/uL (0-0.5); Eosinophils % (auto) 0.9 %; Hematocrit (blood only) 35.9 % (37-47); Hemoglobin 12.4 g/dL (12.0-16.0); Immature Granulocytes # (auto) 0.01 K/uL (0.00-0.02); Immature Granulocytes % (auto) 0.2 %; Lymphocytes # (auto) 1.28 K/uL (1.2-3.4); Lymphocytes % (auto) 19.6 %; Mean Corpuscular Volume 97.6 fL (80-100); Mean Platelet Volume 9.5 fL (7.4-10.4); Monocytes # (auto) 0.39 K/uL (0.11-0.59); Neutrophils # (auto) 4.78 K/uL (1.4-6.5); Neutrophils % (auto) 73.1 %; Platelet Count 119 K/uL (130-400); RDW Coefficient of Variation 13.4 % (11.5-14.5); RDW Standard Deviation 47.1 fL (36.4-46.3); Red Blood Count 3.68 M/uL (4.2-5.4); White Blood Count 6.53 K/uL (4.8-10.8)
[2019-02-18 08:42] LABS: Mean Corpuscular Hgb Conc 34.5 g/dL (32-36)
[2019-02-18] MEDS ORDERED: fentaNYL citrate 100 MCG/2 ML VIAL ONE (08:47)
[2019-02-18] MEDS ORDERED: MoRPHine SULFATE PF 1 MG/ML 10 ML AMP/VIAL ONE (08:47)
--- NOTE | 2019-02-18 08:47 | History & Physical Bridge Note ---
Date of Service February 18, 2019 History & Physical Bridge Note I have examined the patient, reviewed the History & Physical and in the interval since the performance of the History & Physical I have noted the following changes of clinical significance: no changes noted
[2019-02-18] MEDS ORDERED: PHENYLEPHRINE HCL 10 MG/ML VIAL ONE (13:29)
[2019-02-18] MEDS ORDERED: OXYTOCIN 10 UNITS/ML VIAL ONE (13:29)
[2019-02-18] MEDS ORDERED: KETOROLAC 30 MG/ML VIAL ONE (13:29)
--- NOTE | 2019-02-18 14:10 | Post Operative Brief Note ---
Immediate Post Op Note v1 Date of Surgery February 18, 2019 Pre & Post Diagnosis Operation Date: 02/18/19 08:50 Pre-Op Diagnosis: A 39+ week intrauterine ; prior section x2, desires repeat section, Gestational diabetes, diet controlled. Post-Op Diagnosis: Same as preop Procedure Operation Date: 02/18/19 08:50 Actual Procedures p Repeat Low Transverse Section with delivery of live female child at 1339 - Julia Cross MD, FACOG Surgeon Julia Cross MD, FACOG Cartographic Aide Abi Estimated Blood Loss 600 Findings Consistent with Post-Op Diagnosis (v) viable female apgars 8,9. normal uterus tubes ovaries bilaterally Fluids 1000 Drains Quintana Catheter Anesthesia Type Spinal Complications none Disposition Disposition: L&D
[2019-02-18] MEDS ORDERED: MEPERIDINE HCL 25 MG/ML CARP IV PRN (14:24)
[2019-02-18] MEDS ORDERED: HYDROmorphone INJ 0.5 MG/0.5 ML SYR IV PRN (14:24)
[2019-02-18] MEDS ORDERED: NALOXONE HCL 0.4 MG/1 ML VIAL/CARP IV PRN (14:24)
[2019-02-18] MEDS ORDERED: LACTATED RINGER'S 500 ML IV PRN (14:24)
[2019-02-18] MEDS ORDERED: ONDANSETRON INJ 2 MG/ML 2 ML VIAL IV PRN (14:24)
[2019-02-18] MEDS ORDERED: NALOXONE HCL 0.08 MG in SYRINGE 1.8 ML IV PRN (14:24)
[2019-02-18] MEDS ORDERED: MoRPHine SULFATE PF 1 MG/ML 10 ML AMP/VIAL INT SPINAL ONE (14:24)
[2019-02-18] MEDS ORDERED: NALBUPHINE HCL INJ 10 MG/ML AMP IV PRN (14:24)
[2019-02-18] MEDS ORDERED: ePHEDrine sulfate 50 MG/ML AMP IV PRN (14:24)
[2019-02-18] MEDS ORDERED: DiphenhydrAMINE HCL 50 MG/ML VIAL IV PRN (14:24)
[2019-02-18] MEDS ORDERED: MoRPHine SULFATE 2 MG/ML CARP IV PRN (14:24)
[2019-02-18] MEDS ORDERED: NALOXONE HCL 1 MG in SODIUM CHLORIDE 0.9% 1000ML 1,000 ML IV PRN (14:24)
[2019-02-18] MEDS ORDERED: PROMETHAZINE HCL 6.25 MG in SODIUM CHLORIDE 0.9% 50 ML IV PRN (14:24)
--- NOTE | 2019-02-18 14:25 | Anesthesiology Progress Note ---
Date of Service February 18, 2019 Anesthesia Post Procedure Vital Signs Vital Signs: Temp Pulse Resp BP Pulse Ox 02/18/19 14:20 89 97 02/18/19 14:19 90 105/56 L 02/18/19 07:21 98 H 113/73 02/18/19 07:17 36.7 C 20 Transfer of Care Handoff Completed per policy Notes Mental Status: alert / awake / arousable Nausea / Vomiting: adequately controlled Pain: adequately controlled Airway Patency, RR, SpO2: stable & adequate BP & HR: stable & adequate Hydration State: stable & adequate Neuraxial Anesthesia: was administered and sensory block is resolving Anesthetic Complications: no major complications apparent
[2019-02-18] MEDS ORDERED: NO NARCOTICS OR SEDATIVES SCH (14:30)
[2019-02-18] MEDS ORDERED: SODIUM CHLORIDE 0.9% 1000ML 1,000 ML IV SCH (14:30)
[2019-02-18] MEDS ORDERED: DC INTRASPINAL MORPHINE SCH (14:30)
--- NOTE | 2019-02-18 14:48 | Operative Report ---
DATE OF OPERATION: 02/18/2019 PREOPERATIVE DIAGNOSES: 1. 39+ week intrauterine . 2. Prior section x2, desires repeat section. 3. Gestational diabetes, diet controlled. POSTOPERATIVE DIAGNOSES: 1. 39+ week intrauterine . 2. Prior section x2, desires repeat section. 3. Gestational diabetes, diet controlled. PROCEDURE: Repeat low transverse section. SURGEON: Julia Cross MD POWDER CORE TESTER: Burak Alex MD INTRAVENOUS FLUIDS: 1000 mL. ESTIMATED BLOOD LOSS: 600 mL. ANESTHESIA: Spinal with Duramorph. FINDINGS: Viable female infant, Apgars 9 and 9. Normal uterus, tubes and ovaries bilaterally. Lower uterine segment muscle was thin, but no window noted. INDICATIONS: A 33-year-old 3, para 2-0-0-2, with prior section x2 for planned repeat section. The patient declines tubal ligation. DESCRIPTION OF PROCEDURE: The patient was taken to the operating room and identified. After spinal anesthesia was obtained, she was placed in the supine position with a leftward tilt and prepped and draped in the usual sterile fashion. The knife was used to create a Pfannenstiel skin incision that was carried down to the underlying layer of fascia. The fascia was nicked in the midline and this opening was extended laterally using Isaac scissors. Leah clamps were placed on the superior aspect of fascial incision and tented upwards. The rectus muscles were dissected off the overlying fascia both sharply and bluntly using Isaac scissors. This resulted in peritoneal entry. This opening was stretched and the bladder was adhesed relatively high on the uterus. The opening was then manually stretched. An inferior rectus muscle dissection was not necessary. The bladder blade was placed. The bladder flap was created bluntly. The knife was used to create a hysterotomy that was then stretched. The orange picker machine operator's hand was placed through the hysterotomy and the cephalic was elevated and the bladder blade was removed. With fundal pressure, the cephalic was delivered, and the shoulders and body were delivered with ease. The was vigorous and crying at as the mouth and nose were bulb suctioned. The cord was clamped at 30 seconds of life per the patient's wishes. It was then doubly clamped and cut and the was handed off to the awaiting pediatricians. Cord blood for donation was then obtained. The placenta was then manually expressed. The uterus was exteriorized and cleared of all clots and debris. The hysterotomy was closed in a running interlocking fashion with 0 Vicryl and imbricating sutures of 0 Vicryl were placed with special care as the lower portion of the hysterotomy was extremely thin. The pelvis was irrigated. Uterus returned to the abdomen. The gutters were cleared of all clots and debris. The hysterotomy was reinspected and noted to be hemostatic. The fascia was reapproximated using 0 Vicryl in a running fashion. The subcutaneous fat was irrigated. The subcutaneous tissue was reapproximated using 2-0 chromic. The skin was then closed in a subcuticular fashion using 4-0 Monocryl. All sponge, lap, needle counts were correct x2. The patient was returned to the recovery room in stable condition. I attest to the content of the Intraoperative Record and any orders documented therein. Any exception s are noted below.
[2019-02-18] MEDS ORDERED: HYDROCORTISONE ACETATE 25 MG SUPP PR PRN (14:52)
[2019-02-18] MEDS ORDERED: BENZOCAINE 20% AER SPR 82.5 GM CAN EXT PRN (14:52)
[2019-02-18] MEDS ORDERED: SUPERCREAM 0.870% 15 GM JAR EXT PRN (14:52)
[2019-02-18] MEDS ORDERED: DIPHTHERIA/TETANUS/PERTUSSIS 0.5 ML SYR/VIAL IM ONE (14:52)
[2019-02-18] MEDS: OXYTOCIN 20 UNITS in LACTATED RINGER'S 1,000 ML IV SCH (16:12)
[2019-02-18] MEDS: KETOROLAC 30 MG/ML VIAL IV PRN (17:19)
[2019-02-18] MEDS: SIMETHICONE 80 MG CHEW PO SCH (18:22)
[2019-02-19] MEDS: KETOROLAC 30 MG/ML VIAL IV PRN ×2 (00:03→06:41)
[2019-02-19] MEDS: OXYTOCIN 20 UNITS in LACTATED RINGER'S 1,000 ML IV SCH (00:07)
[2019-02-19] MEDS: SIMETHICONE 80 MG CHEW PO SCH ×5 (06:11→20:28)
[2019-02-19] MEDS: DOCUSATE SODIUM 100 MG CAP PO SCH ×3 (06:11→20:27)
[2019-02-19 06:42] LABS: Hematocrit (blood only) 32.9 % (37-47); Hemoglobin 11.7 g/dL (12.0-16.0); Mean Corpuscular Hgb Conc 35.6 g/dL (32-36); Mean Corpuscular Volume 96.8 fL (80-100); RDW Coefficient of Variation 13.3 % (11.5-14.5); RDW Standard Deviation 46.7 fL (36.4-46.3)
[2019-02-19] MEDS ORDERED: SODIUM CHLORIDE 0.9% 1000ML 500 ML IV ONE (06:54)
--- NOTE | 2019-02-19 06:54 | Obstetrical Progress Note ---
Date of Service February 19, 2019 Assessment & Plan (1) Status post repeat low transverse section: pt stable. poor urine output, will bolus NS. she is about 18hr from c/s. will see hgb when avail this am. . juanis clears. will ambulate later today and likely remove renee later today. Subjective Passing Gas:: No Diet Tolerance:: clear liquids Lochia:: Moderate Feeding Type:: breast feeding not voided yet, renee just out, denies pain issues. Physical Exam Vital Signs (Past 24 Hours) Last Vital Signs Temp 97.9 F 02/19/19 04:00 Pulse 75 02/19/19 04:00 Resp 18 02/19/19 05:00 BP 99/66 L 02/19/19 04:00 Pulse Ox 96 02/19/19 05:00 Constitutional WD/WN, vitals as above Respiratory normal respiratory effort, lungs clear to auscultation Cardiovascular Rate/Rhythm: regular rate and regular rhythm Gastrointestinal (Abdomen) ff 2 down, dressing c/d/i Musculoskeletal nt calves Neurologic grossly normal
[2019-02-19 07:12] LABS: Basophils # (auto) 0.01 K/uL (0-0.2); Basophils % (auto) 0.1 %; Eosinophils # (auto) 0.07 K/uL (0-0.5); Eosinophils % (auto) 0.9 %; Immature Granulocytes # (auto) 0.01 K/uL (0.00-0.02); Immature Granulocytes % (auto) 0.1 %; Lymphocytes # (auto) 1.13 K/uL (1.2-3.4); Lymphocytes % (auto) 14.9 %; Mean Platelet Volume 9.3 fL (7.4-10.4); Monocytes # (auto) 0.52 K/uL (0.11-0.59); Monocytes % (auto) 6.8 %; Neutrophils # (auto) 5.86 K/uL (1.4-6.5); Neutrophils % (auto) 77.2 %; Platelet Count 99 K/uL (130-400); Platelet Estimate Decreased (Normal); RBC Morphology Unremarkable
[2019-02-19] MEDS ORDERED: ONDANSETRON INJ 2 MG/ML 2 ML VIAL IV PRN (08:24)
[2019-02-19] MEDS ORDERED: PROMETHAZINE HCL 25 MG in SODIUM CHLORIDE 0.9% 50 ML IV PRN (08:24)
[2019-02-19] MEDS ORDERED: DiphenhydrAMINE HCL 50 MG/ML VIAL IV PRN (08:24)
[2019-02-19] MEDS ORDERED: ZOLPIDEM TARTRATE 5 MG TAB PO PRN (08:24)
--- NOTE | 2019-02-19 09:29 | Anesthesiology Progress Note ---
Date of Service February 19, 2019Pt is s/p SAB for Csec on 02/18/19.Pt has no c/o H/A,LBP or LE weakness or paresthesias .Pt has been up and ambulating. Physical Exam Vital Signs: Last Vital Signs Temp 36.6 C 02/19/19 07:30 Pulse 75 02/19/19 07:30 Resp 20 02/19/19 07:30 BP 102/69 02/19/19 07:30 Pulse Ox 97 02/19/19 07:00 Results & Data Medications Administered Docusate Sodium (Colace) 100 mg PO BID [facility] Stop: 03/20/19 20:59 Last Admin: 02/19/19 08:07 Dose: 100 mg Documented by: [id number] Admin: 02/19/19 06:11 Dose: Not Given Documented by: [id number] Simethicone (Mylicon) 80 mg PO QID [facility] Stop: 03/20/19 16:59 Last Admin: 02/19/19 08:06 Dose: 80 mg Documented by: [id number] Admin: 02/19/19 06:11 Dose: Not Given Documented by: [id number] Admin: 02/18/19 18:22 Dose: 80 mg Documented by: [id number]
[2019-02-19] MEDS: IBUPROFEN 600 MG TAB PO PRN ×2 (11:18→20:27)
[2019-02-19] MEDS: OXYCODONE/ACETAMINOPHEN 5mg/325mg TAB PO PRN ×3 (11:19→20:27)
[2019-02-20] MEDS: IBUPROFEN 600 MG TAB PO PRN ×5 (00:35→21:20)
[2019-02-20] MEDS: OXYCODONE/ACETAMINOPHEN 5mg/325mg TAB PO PRN ×6 (00:36→21:20)
[2019-02-20 06:41] LABS: Hematocrit (blood only) 31.9 % (37-47); Hemoglobin 11.2 g/dL (12.0-16.0)
[2019-02-20] MEDS: DOCUSATE SODIUM 100 MG CAP PO SCH ×2 (08:35→21:01)
[2019-02-20] MEDS: SIMETHICONE 80 MG CHEW PO SCH ×4 (08:35→21:01)
--- NOTE | 2019-02-20 08:44 | Obstetrical Progress Note ---
Date of Service February 20, 2019 Subjective Patient doing well. POD 2 from LTCS. Meeting all post op goals Physical Exam Gastrointestinal (Abdomen): Inspection/Auscultation: + abdominal surgical incision (Healing well) Genitourinary: OB Exam Abdomen: + fundal height Fundus: + firm and + relation to umbilicus (Below); not tender and not boggy Results & Data Vital Signs (Past 12 Hours) Vital Signs Temp Pulse Resp BP Pulse Ox 02/19/19 23:25 98.1 F 78 16 105/69 96
[2019-02-21] MEDS: OXYCODONE/ACETAMINOPHEN 5mg/325mg TAB PO PRN ×5 (01:27→17:48)
[2019-02-21] MEDS: IBUPROFEN 600 MG TAB PO PRN ×5 (01:27→17:49)
--- NOTE | 2019-02-21 07:33 | Obstetrical Progress Note ---
Date of Service February 21, 2019 Assessment & Plan (1) Status post repeat low transverse section: Patient doing well. POD 3. Stable for discharge Subjective Ambulation: ambulating normally Voiding: no voiding problems Passing Gas:: Yes Diet Tolerance:: regular diet Lochia:: Moderate Feeding Type:: breast feeding Physical Exam Vital Signs (Past 24 Hours) Last Vital Signs Temp 98.4 F 02/20/19 23:30 Pulse 71 02/20/19 23:30 Resp 18 02/20/19 23:30 BP 133/75 02/20/19 23:30 Pulse Ox 98 02/20/19 23:30 Gastrointestinal (Abdomen) Inspection/Auscultation: + abdominal surgical incision (Healing well) Genitourinary OB Exam Abdomen: + fundal height Fundus: + firm and + relation to umbilicus (Below); not tender and not boggy
[2019-02-21] MEDS: SIMETHICONE 80 MG CHEW PO SCH ×3 (09:18→18:09)
[2019-02-21] MEDS: DOCUSATE SODIUM 100 MG CAP PO SCH (09:18)
--- NOTE | 2019-02-25 15:43 | Discharge Summary ---
ADMISSION DIAGNOSES: 1. 39-week intrauterine . 2. Prior section x2, desires repeat section. 3. Gestational diabetes, diet controlled. 4. Rh negative. DISCHARGE DIAGNOSES: 1. 39-week intrauterine . 2. Prior section x2, desires repeat section. 3. Gestational diabetes, diet controlled. 4. Rh negative. PROCEDURE: Repeat low transverse section. BRIEF HISTORY AND HOSPITAL COURSE: A 33-year-old 3, para 2-0-0-2, at 39-6/7 weeks estimated gestational age who presented for planned delivery on 02/19/2019 and underwent the above-stated procedure without incident. Her estimated blood loss was 600 mL. Her postop hemoglobin was 11.2. On her postop day #3, she was tolerating a regular diet, voiding spontaneously without difficulty, ambulating without difficulty and was stable for discharge to home. She was given appropriate discharge instructions as well as pain medication prescriptions. She was instructed to follow up in 6 weeks for checkup. She was . MOHAN
== END 2019-02-21 18:23 | disposition home or self-care (01) | DRG 787 ==
LOC: 4S1 07:11 → EDSTATUS 07:30 → 4S2 19:25